=== PATIENT | male | born 1955 | race Caucasian/White ===

== ENCOUNTER → 2017-04-03 | Outpatient (CLI) | payer OTHER | LOC: FIMAGING 19:18 | PROVIDERS: ATTEND Orthopaedic Surgery Sports Medicine | DX: M75.121 Complete rotator cuff tear or rupture of right shoulder, not specified as traumatic (principal); M75.81 Other shoulder lesions, right shoulder; M19.011 Primary osteoarthritis, right shoulder ==

== ENCOUNTER → 2018-07-29 | Outpatient (CLI) | payer OTHER ==
[~2018-07-29] MED LIST: GADOBUTROL 10 ML VIAL IVP ONE
== END ==
LOC: FIMAGING 15:44
PROVIDERS: ATTEND Urology
DX: R39.89 Other symptoms and signs involving the genitourinary system (principal); N40.0 Benign prostatic hyperplasia without lower urinary tract symptoms; N40.2 Nodular prostate without lower urinary tract symptoms
CPT/HCPCS: A9585

== ENCOUNTER 2018-11-29 01:59 | Observation (INO) | payer OTHER ==
--- NOTE | 2018-11-29 02:08 | EDPHY ---
H & P Stated Complaint: bloody urine, self cath x 1 week post prostate suregery Time Seen by Provider: 11/29/18 02:08 HPI/ROS: HPI CHIEF COMPLAINT: Unable to urinate, hematuria HISTORY OF PRESENT ILLNESS: Patient is a 63-year-old male, history BPH, recently had a urological procedure for his prostate. He had a Javier catheter removed today. He had to urinate around 1:00 a.m.. He was unable to do so due to hematuria. Discomfort when he urinated. He has been self cathing. Presents emergency room with urinary urgency, suprapubic discomfort and fullness. Past Medical History: Denies significant medical history except for BPH Past Surgical History: Prostate surgery. Social History: Denies drugs alcohol tobacco. Family History: Noncontributory ROS REVIEW OF SYSTEMS: 10 Systems were reviewed and negative with the exception of the elements mentioned in the history of present illness. Exam Constitutional triage nursing summary reviewed, vital signs reviewed, awake/ alert. Eyes normal conjunctivae and sclera, EOMI, PERRLA. HENT normal inspection, atraumatic, moist mucus membranes, no epistaxis, neck supple/ no meningismus, no raccoon eyes. Respiratory clear to auscultation bilaterally, normal breath sounds, no respiratory distress, no wheezing. Cardiovascular rate normal, regular rhythm, no murmur, no edema, distal pulses normal. Gastrointestinal suprapubic fullness and tenderness on exam,no guarding, normal bowel sounds, no distension, no pulsatile mass. Genitourinary no CVA tenderness. Musculoskeletal no midline vertebral tenderness, full range of motion, no calf swelling, no tenderness of extremities, no meningismus, good pulses, neurovascularly intact. Skin pink, warm, & dry, no rash, skin atraumatic. Neurologic awake, alert and oriented x 3, AAOx3, moves all 4 extremities equally, motor intact, sensory intact, CN II-XII intact, normal cerebellar, normal vision, normal speech. Psychiatric normal mood/affect. Heme/Lymph/Immune no lymphadenopathy. Differential Diagnosis: Includes but is not limited to in a particular order urinary outflow obstruction, UTI, cystitis, BPH, blood clot causing obstructive Medical Decision Making: Plan for this patient bladder scan, urinalysis, Javier catheter. Re-evaluation: Bladder scan reported to me as a 1000 cc. 0257: Javier catheter was placed, large amount of bright red blood per Javier catheter removed. Will irrigate. Patient at 2:57 a.m. Very uncomfortable writhing in pain having bladder spasms and discomfort. IV will be established, IV Dilaudid 1 mg, IV fluids, IV Zofran. Basic labs. 0301: Bedside ultrasound performed, bladder scan shows a large hematoma in the bladder. Ultrasound bladder and kidneys shows large heterogeneous solid clot within a moderately distended bladder Javier catheter placed. No hydro. Dr. Lawler, at bedside evaluating patient. Source: Patient - Personal History Current Tetanus Diphtheria and Acellular Pertussis (TDAP): Yes - Medical/Surgical History Hx Asthma: No Hx Chronic Respiratory Disease: No Hx Diabetes: No Hx Cardiac Disease: No Hx Renal Disease: No Hx Cirrhosis: No Hx Alcoholism: No Hx HIV/AIDS: No Hx Splenectomy or Spleen Trauma: No Other PMH: 11/20/18 resum - Social History Smoking Status: Never smoked Constitutional: Initial Vital Signs Temperature (C) 36.6 C 11/29/18 02:02 Heart Rate 108 H 11/29/18 02:02 Blood Pressure 147/99 H 11/29/18 02:02 O2 Sat (%) 96 11/29/18 02:02 O2 Delivery Mode Room Air Allergies/Adverse Reactions: naproxen [From Naprosyn] Allergy (Verified 11/29/18 09:02) Hives Penicillins Allergy (Verified 11/29/18 09:02) Hives Home Medications: Medication Instructions Recorded NK [No Known Home Meds] 11/29/18 Medical Decision Making - Data Points Laboratory Results: Laboratory Results 11/29/18 03:00 11/29/18 03:00 Medications Given: Hydrocodone Bitart/Acetaminophen (Starke 5/325) 1 - 2 tab PO Q4HRS PRN PRN Reason: Pain, Moderate Able to Take PO Stop: 12/09/18 04:55 Last Admin: 11/29/18 22:42 Dose: 1 tab Senna/Docusate Sodium (Senokot-S) 1 tab PO BID TONNY Stop: 05/28/19 08:59 Last Admin: 11/29/18 21:21 Dose: 1 tab Discontinued Medications Belladonna Alkaloids/Opium (B & O) Confirm Administered Dose 1 each AR .STK-MED ONE Stop: 11/29/18 15:48 Last Admin: 11/29/18 16:19 Dose: 1 each Hydromorphone HCl (Dilaudid) 0.5 mg IVP EDNOW ONE Stop: 11/29/18 02:55 Last Admin: 11/29/18 03:59 Dose: Not Given Hydromorphone HCl (Dilaudid) 1 mg IVP EDNOW ONE Stop: 11/29/18 02:57 Last Admin: 11/29/18 03:00 Dose: 1 mg Hydromorphone HCl (Dilaudid) 1 mg IVP EDNOW ONE Stop: 11/29/18 03:15 Last Admin: 11/29/18 03:20 Dose: 1 mg Hydromorphone HCl (Dilaudid) 0.5 mg IVP EDNOW ONE Stop: 11/29/18 04:00 Last Admin: 11/29/18 03:00 Dose: 0.5 mg Sodium Chloride (Ns) 1,000 mls @ 0 mls/hr IV EDNOW ONE; Wide Open PRN Reason: Protocol Stop: 11/29/18 02:55 Last Admin: 11/29/18 04:01 Dose: Not Given Trimethoprim/Sulfamethoxazole (81 mg/ Dextrose) 255.0625 mls @ 250 mls/hr IV ONCALL ONE PRN Reason: Protocol Stop: 11/29/18 14:09 Last Admin: 11/29/18 14:03 Dose: Not Given Trimethoprim/Sulfamethoxazole (160 mg/ Dextrose) 260 mls @ 260 mls/hr IV ONCE ONE Stop: 11/29/18 14:59 Last Admin: 11/29/18 14:33 Dose: 260 mls Lactated Ringer's (Lr) 1,000 mls @ 0 mls/hr IV ONCE ONE PRN Reason: KVO Stop: 11/29/18 14:13 Last Admin: 11/29/18 17:33 Dose: Not Given Levofloxacin (Levaquin) 500 mg PO EDNOW ONE PRN Reason: Protocol Stop: 11/29/18 04:57 Last Admin: 11/29/18 05:53 Dose: Not Given Lidocaine (Uroject Lidocaine 2% Jelly) 20 ml UR EDNOW ONE Stop: 11/29/18 02:27 Last Admin: 11/29/18 03:19 Dose: 20 ml Lidocaine (Uroject Lidocaine 2% Jelly) Confirm Administered Dose 20 ml .ROUTE .STK-MED ONE Stop: 11/29/18 14:44 Last Admin: 11/29/18 16:18 Dose: 20 ml Ondansetron HCl (Zofran) 4 mg IVP EDNOW ONE Stop: 11/29/18 02:55 Last Admin: 11/29/18 03:19 Dose: 4 mg Trimethoprim/Sulfamethoxazole (Bactrim Ds) 1 ea PO BID TONNY PRN Reason: Protocol Stop: 12/29/18 12:44 Last Admin: 11/29/18 14:03 Dose: Not Given Departure - Departure Disposition: Home, Routine, Self-Care Clinical Impression: Urinary (tract) obstruction Hematuria Qualifiers: Hematuria type: unspecified type Qualified Code(s): R31.9 - Hematuria, unspecified Hematoma of bladder wall Qualifiers: Encounter type: initial encounter Qualified Code(s): S37.22XA - Contusion of bladder, initial encounter Condition: Good
[2018-11-29] MEDS ORDERED: LIDOCAINE 2% JELLY 20 ML (UROJECT) UR ONE (02:26)
[2018-11-29] MEDS ORDERED: ONDANSETRON 4 MG/2 ML VIAL IVP ONE (02:54)
[2018-11-29] MEDS ORDERED: NS 1,000 ML IV ONE (02:54)
[2018-11-29] MEDS: HYDROmorphONE/DILAUDID 2 MG/ML INJ IVP ONE ×6 (03:00→03:59)
[2018-11-29 03:21] LABS: INR 1.01 (0.83-1.16); PROTIME(PATIENT) 12.9 SEC (12.0-15.0)
[2018-11-29] MEDS ORDERED: HYDROmorphONE/DILAUDID 2 MG/ML INJ IVP ONE (03:59)
[2018-11-29 04:02] LABS: PLATELET COUNT 244 10^3/uL (150-400)
[2018-11-29] MEDS ORDERED: OPIUM/BELLADONNA ALKALO SUPP PR PRN (04:56)
[2018-11-29] MEDS ORDERED: ONDANSETRON 4 MG/2 ML VIAL IVP PRN (04:56)
[2018-11-29] MEDS ORDERED: D5W LR 1,000 ML IV SCH (05:00)
--- NOTE | 2018-11-29 05:15 | PDCONSULT ---
Chenille Machine Operator Note: Requested by Dr. Georges [facility] hematuria, clot HPI 63M s/p Rezum procedure 2 weeks ago. Unable to void a few days after procedure and repeat voiding trial yesterday again pt unable to void. Taught CIC in my office and this went well. However, tonight he was passing zazueta and met resistance and got return of rafy blood at 9pm and 1am. Then significant abdominal discomfort and came to ER for eval. ER placed 18F [address] way, unable to irrigate and rafy blood return. Renal bladder us performed, SHARITA personally reviewed, 11cm clot seen in bladder, zazueta balloon in bladder. Urologist consulted. Pt in much discomfort suprapubically and in the urethra. NO blood thinners, but Ibuprofen yesterday. Otherwise healthy gentleman. ROS 10pt ROS performed, as stated in HPI, otherwise neg. PMH/PSH/FH/SH reviewed. PE Gen NAD A&O CV regular Lungs Normal effort Abd Suprapubic area distended, firm, tender 18F [address], rafy blood in catheter tubing. 18F removed. Using sterile technique, 24F 3w placed without difficulty or resistance. Return of bloody urine. Then manual irrigation of zazueta with 3L NS with removal of significant amount of clot. Irrigated until no more clot extracted and urine was clear/red. CBI initiated. Patient felt much better after manual irrigation and SP region no longer distended. A/P Hematuria/clot retention after cath this evening Urinary retention after prostate vaporization procedure 2 weeks ago Suspect a false passage leading to significant prostatic bleeding and this clot tonight. Plan: CBI, manual irrigation PRN clots/obstruction of zazueta Repeat SHARITA this morning to assess clot burden. NPO for now until repeat SHARITA can be performed to assess clot burden Pain control, IVF. Levaquin 1 dose given recent manipulation.
--- NOTE | 2018-11-29 08:59 | ASMTCMCOM ---
CM Note CM Note Notes: Pt is a 63 yo M who underwent prostate surgery two weeks ago presents with abdominal pain and blood in urine. Chart reviewed for discharge planning. Pt lives with . No therapies ordered at this time. Discharge needs TBD at this point. CM to follow. Plan: TBD Date Signed: 11/29/2018 08:59 AM Electronically Signed By:CHRISS Simpson
[2018-11-29] MEDS: SENNOSIDES/DOCUSATE SODIUM TAB PO SCH ×2 (09:00→21:21)
[2018-11-29] MEDS ORDERED: SULFAMETHOX/TMP 800/160 MG 1 TAB PO SCH (12:45)
--- NOTE | 2018-11-29 13:06 | SOAPPROG ---
SOAP Progress Note Assessment/Plan: Assessment: hematuria after traumatic zazueta Recent SHARITA shows small reduction in bladder clot. Recent manual irrigation didn't produce significant extraction of clot. Suspect well organized clot. Plan: Recommend repeat SHARITA to eval clot size and if not significantly reduced, then recommend OR for clot evac, possible fulguration of bleeding vessel. Bactrim preop abx. 11/29/18 13:04 11/29/18 13:11 Subjective: CBI running, urine still red. SHARITA this Am personally reviewed - clot smaller but still significant. Pain much reduced since zazueta and irrigation last night. Objective: Vital Signs Temp Pulse Resp BP Pulse Ox 36.6 C 71 18 118/64 94 11/29/18 11:16 11/29/18 11:16 11/29/18 11:16 11/29/18 11:16 11/29/18 11:16 11/28/18 11/29/18 11/30/18 05:59 05:59 05:59 Intake Total 0 Output Total 1800 150 Balance -1800 -150 PT 12.9 SEC (12.0-15.0) 11/29/18 03:00 INR 1.01 (0.83-1.16) 11/29/18 03:00 Gen NAED A*O CV regular Lungs Normal effort Abd soft Ext warm SP region soft. Zazueta in place, urine light pink. I manually irrigated again and very little clot could be extracted. Suspect well organized clot. ICD10 Worksheet Patient Problems: Problems Problem Status Onset Hematoma of bladder wall Acute Hematuria Acute Urinary (tract) obstruction Acute
[2018-11-29] MEDS ORDERED: SULFAMETHOX IV ONE ×2 (13:08→14:00)
[2018-11-29] MEDS ORDERED: D5W IV ONE ×2 (13:08→14:00)
[2018-11-29] MEDS ORDERED: TMP IV ONE ×2 (13:08→14:00)
[2018-11-29] MEDS ORDERED: LR 1,000 ML IV ONE (14:12)
[2018-11-29] MEDS ORDERED: LIDOCAINE 2% JELLY 20 ML (UROJECT) ONE (14:43)
--- NOTE | 2018-11-29 14:47 | PDANEPAE ---
ANE History of Present Illness here for cysto ANE Past Medical History - Cardiovascular History Hx Hypertension: No Hx Arrhythmias: No Hx Chest Pain: No Hx Coronary Artery / Peripheral Vascular Disease: No Hx CHF / Valvular Disease: No Hx Palpitations: No - Pulmonary History Hx COPD: No Hx Asthma/Reactive Airway Disease: No Hx Recent Upper Respiratory Infection: No Hx Oxygen in Use at Home: No Hx Sleep Apnea: No Sleep Apnea Screening Result - Last Documented: Positive - Endocrine History Hx Diabetes: No Hypothyroid: No Hyperthyroid: No Obesity: no - Renal History Hx Renal Disorders: Yes - Liver History Hx Hepatic Disorders: No - Neurological & Psychiatric Hx Hx Neurological and Psychiatric Disorders: No - Chronic Pain History Chronic Pain: No ANE Review of Systems Review of systems is: negative Review of Systems: - Exercise capacity Exercise capacity: >=4 METS ANE Patient History - Allergies Allergies/Adverse Reactions: naproxen [From Naprosyn] Allergy (Verified 11/29/18 09:02) Hives Penicillins Allergy (Verified 11/29/18 09:02) Hives - Home Medications Home medications: home medication list seen and reviewed Home Medications: NK [No Known Home Meds] 11/29/18 [Last Taken Unknown] - NPO status NPO Status: no food or drink >8 hours NPO Since - Liquids (Date): 11/29/18 NPO Since - Liquids (Time): 01:00 NPO Since - Solids (Date): 11/28/18 NPO Since - Solids (Time): 19:00 - Anes Hx Anes Hx: no prior problems - Smoking Hx Smoking Status: Never smoked ANE Labs/Vital Signs - Labs Result Diagrams: 11/29/18 03:00 11/29/18 03:00 - Vital Signs Vital Signs: reviewed preoperatively; see RN documention for details Blood Pressure: 118/64 Heart Rate: 69 Respiratory Rate: 18 O2 Sat (%): 94 Height: 177.8 cm Weight: 72.3 kg ANE Physical Exam - Airway Neck exam: FROM Mallampati Score: Class 1 - Pulmonary Pulmonary: no respiratory distress - Cardiovascular Cardiovascular: regular rate and rhythym - ASA Status ASA Status: I ANE Anesthesia Plan Anesthesia Plan: GA w LMA
[2018-11-29] MEDS ORDERED: PROPOFOL/EMULSION 500 MG/50 ML BOTTLE IV ONE (14:59)
[2018-11-29] MEDS ORDERED: fentaNYL 100 MCG/2 ML INJ ONE (15:00)
[2018-11-29] MEDS ORDERED: DEXAMETHASONE 4 MG/ML VIAL ONE (15:12)
[2018-11-29] MEDS ORDERED: ONDANSETRON 4 MG/2 ML VIAL ONE (15:13)
[2018-11-29] MEDS ORDERED: OPIUM/BELLADONNA ALKALO SUPP PR ONE (15:47)
--- NOTE | 2018-11-29 16:53 | POSTOPPROG ---
Post Op Note Date of Operation: 11/29/18 Surgeon: Tiffany Johnson Anesthesiologist: Miguel Anesthesia: GET(General Endotracheal) Pre-op Diagnosis: gross hematuria, clot retention, recent zazueta trauma Post-op Diagnosis: same Indication: gross hematuria, clot retention, recent zazueta trauma Procedure: cysto, clot evacuation, TURP, fulguration of traumatized prostate tissue Findings: clot, posterior prostate w false passage, active bleeding prostate tissue Inf/Abcess present in the surg proc area at time of surgery?: No EBL: Minimal Complications: None, pt tolerated procedure well Drains: Other (zazueta) Specimen(s): prostate chips
--- NOTE | 2018-11-29 17:40 | GOP ---
[f rep st] OPERATIVE REPORT DATE OF OPERATION: 11/29/2018 SURGEON: Tiffany Johnson MD ANESTHESIA: General. ANESTHESIOLOGIST: Dr. Rivera. PREOPERATIVE DIAGNOSIS: Gross hematuria, clot retention, and recent Javier trauma. POSTOPERATIVE DIAGNOSIS: Gross hematuria, clot retention, and recent Javier trauma. PROCEDURE PERFORMED: Cystoscopy, clot evacuation, transurethral resection of prostate, and fulgurati on of traumatized prostate tissue. FINDINGS: A very large clot in the bladder that was removed with the [employer] evacuator. Active bleedi ng was seen at the posterior prostate, but also this area coincided with what appeared to have some t earing of the posterior adenoma down to the capsule, and it was the capsule that was bleeding. At the end of the procedure, he was completely hemostatic. No infection. SPECIMENS: Prostate chips. ESTIMATED BLOOD LOSS: Minimal, although about 200 cc of clot was removed. INDICATIONS: The patient underwent a Rezum prostate vaporization procedure in my office 2 weeks ago and he had persistent urinary retention after the Javier had been removed. He was taught clean interm ittent catheterization on at my office and did well with this. However, passing the cathete r after the teaching at 9 p.m. and 1 a.m. yesterday resulted in significant return of blood, inabilit y to void, and gross blood per urethra. He came to the ER, where ultrasound demonstrated an 11 cm cl ot in the bladder. I was consulted, placed a 24 three-way catheter, and irrigated a significant amou nt of clot out. Reimaging demonstrated persistent clot, although it was smaller. I attempted to con tinue to do manual irrigation throughout the day today and did not get a lot of clot out with the man ual irrigation, but his urine still remained red and I was concerned there was some active bleeding g oing on. Thus, I recommended cystoscopy, clot evacuation, and evaluation for any bleeding tissue. Leslye lópez understood this and agreed to proceed. I did discuss the risks completely, include bleeding, infec tion, pain, injury to the urethra, the bladder, the ureteral orifices, need for subsequent procedures , need for some resection of the prostate, need for Javier catheter afterwards, and he understood this and agreed to proceed. DESCRIPTION OF PROCEDURE: He was taken back to the cystoscopy suite and placed on the cystoscopy tab le in the supine position. General anesthesia induced without complication. Time-out performed. Co re measures satisfied, including placement of a Estefani Hugger, SCDs, and administration of Bactrim IV a ntibiotics. He was brought to the end of the table, placed in the dorsal lithotomy position. All pr essure points padded. Genitalia draped and prepped in the standard surgical fashion with Betadine. A rigid cystoscope easily cannulated the urethral meatus and was advanced atraumatically into the ken dder. I examined the prostatic urethra as the cystoscope was advanced in and I did not see any activ e bleeding there. At this point, I did see a very large clot in the bladder and then used the Edai evacuator to get the clot out in its entirety. The bladder otherwise had no active bleeding. There were some mucosal changes from the catheter in the posterior bladder, but nothing that was actively b leeding. I pulled my scope back into the prostatic urethra and there was a small tissue that was at the posterior bladder neck. I thought at this point, this may be the source, but I was uncertain and it was certainly not actively bleeding, so I removed the cystoscope and then assembled the TURis res ectoscope. I used the visual obturator to advance the resectoscope sheath into the bladder and then assembled the loop and did resect this area of tissue that was right at the bladder neck. However, I then started seeing some bleeding in the posterior prostate area, where I further evaluated and ther e was a false passage, but also an area that looked like the posterior prostate tissue had lifted off the capsule, and it was actually the capsule that was bleeding. I used the resectoscope to remove t his tissue that appeared to be lifted off the posterior capsule, resected that carefully, and then re sected down to the capsule and cauterized this area. It was actively bleeding in 2 areas posteriorly . I did put a second glove on my left hand and do a manual digital rectal exam to make sure there wa s no rectal involvement, and there was not. The rectum was completely intact, and not even at this a domenic, where this capsular bleeding was. I then continued to watch for bleeding. It did take quite a bit of fulguration to stop the bleeding in this area, but once I had thoroughly cauterized this, it w as completely hemostatic. I did resect some of the tissue to get to this area of the posterior prost ate from the bladder neck backwards. I made sure I did not violate the veru. I did not resect all t he way back to the veru and I did not injure the ureteral orifices. I checked their location through out and they were untouched. At this point, he was completely hemostatic. I did not resect any ante rior tissue and did very minimal lateral tissue. At this point then, I removed all the prostate chip s and sent those to Pathology. I removed the resectoscope and then replaced the cystoscope back into the bladder and placed a wire through the cystoscope sheath, as I felt that now we had an anatomy th at may make passage of a catheter more difficult with the newly resected posterior tissue. I placed the catheter over a wire. It went in easily, with return of crystal clear urine. The balloon was in flated with 35 mL of sterile water. Belladonna and opium placed per rectum. At this point, I consid ered the procedure complete. He was awoken from anesthesia and transferred to PACU in good condition . DRAINS: Javier catheter. /[id number]/MODL
[2018-11-29] MEDS: HYDROCODONE/APAP 5/325 TAB PO PRN ×2 (17:45→22:42)
--- NOTE | 2018-11-29 19:14 | POSTANESTH ---
Post Anesthetic Evaluation Cardiovascular Status: Normal, Stable Respiratory Status: Normal, Stable Level of Consciousness/Mental Status: Can Participate in Eval Pain Control: Adequate, Prn Tx Ordered Nausea/Vomiting Control: Adequate, Prn Tx Ordered Complications Possibly Related to Anesthesia: None Noted
[2018-11-30] MEDS: HYDROCODONE/APAP 5/325 TAB PO PRN (07:35)
[2018-11-30] MEDS: SENNOSIDES/DOCUSATE SODIUM TAB PO SCH (07:53)
[2018-11-30] MEDS ORDERED: SULFAMETHOX/TMP 800/160 MG 1 TAB PO SCH (09:00)
[2018-11-30] MEDS ORDERED: LIDOCAINE 2% JELLY 20 ML (UROJECT) UR ONE (09:15)
--- NOTE | 2018-11-30 09:56 | SOAPPROG ---
SOAP Progress Note Assessment/Plan: Assessment: hematuria after traumatic zazueta s/p prostate vaporization procedure 2 wks ago POD 1 fulguration of bleeding prostate tissue and resection of posterior prostate tissue at the site of injury Plan: Voiding trial. If fails, will place 18F coude and dc w zazueta. Will check PVR x 3 and MD to be notified of results. Bactrim x 3 days for post procedure UTI prevention. 11/30/18 09:58 Subjective: Urine clear. CBI off. No pain. Taco diet Objective: Vital Signs Temp Pulse Resp BP Pulse Ox 36.6 C 79 16 103/58 L 92 11/30/18 03:56 11/30/18 03:56 11/30/18 03:56 11/30/18 03:56 11/30/18 03:56 11/29/18 11/30/18 12/01/18 05:59 05:59 05:59 Intake Total 0 1750 Output Total 1800 5050 Balance -1800 -3300 PT 12.9 SEC (12.0-15.0) 11/29/18 03:00 INR 1.01 (0.83-1.16) 11/29/18 03:00 Gen NAD A&O CV regular Lungs Normal effort Abd soft Ext warm zazueta in place, urine crystal clear. Bladder filled w 280ml, zazueta removed, pt voided 220ml. - Pending Discharge Pending Discharge Within 24 Hours: Yes Pending Discharge Date: 12/01/18 Pending Discharge Time: 11:00 ICD10 Worksheet Patient Problems: Problems Problem Status Onset Hematoma of bladder wall Acute Hematuria Acute Urinary (tract) obstruction Acute
--- NOTE | 2018-11-30 10:34 | ASDISCHSUM ---
Discharge Information Plan Status:Home with No Needs Medically Cleared to Leave: Discharge Date: CM D/C Disposition:Home, Routine, Self-Care ADT D/C Disposition:Home, Routine, Self-Care Projected Discharge Date: Transportation at D/C:Family Discharge Delay Reason: Follow-Up Date: Discharge Slot: Final Diagnosis: Placement Information Patient Contact Information Contact Name:SHIRA Relationship: Address:[address] Work Phone: City:[facility] [facility] Phone: State/Zip Code:[place] [address] Email: Financial Information Financial Class:HMO and PPO Plans Primary Plan Desc:[employer] Primary Plan Number:[id number] Secondary Plan Desc: Secondary Plan Number: Assessment Information LACE LACE Acuity / Level of Answers: No Care: Did the patient have an inpatient admission? # of Emergency department Answers: 1-2 visits in the last 6 months Score: 1 Date Signed: 11/30/2018 10:34 AM Electronically Signed By:Suze Wang [facility] CM Progress Note CM Note CM Note Notes: Pt is a 63 yo M who underwent prostate surgery two weeks ago presents with abdominal pain and blood in urine. Chart reviewed for discharge planning. Pt lives with . No therapies ordered at this time. Discharge needs TBD at this point. CM to follow. Plan: TBD Date Signed: 11/29/2018 08:59 AM Electronically Signed By:CHRISS Simpson Intervention Information
[2018-11-30 13:44] VITALS: BP 114/60
== END 2018-11-30 13:36 | disposition home or self-care (01) ==
LOC: F1N 05:25
PROVIDERS: ADMIT Urology; ATTEND Urology
PROC: 0T9870Z Drainage of Bilateral Ureters with Drainage Device, Via Natural or Artificial Opening (ICD-10-PCS; 2018-11-29)
PROC: 4A0D7LZ Measurement of Urinary Volume, Via Natural or Artificial Opening (ICD-10-PCS; 2018-11-29)
PROC: 0T9B8ZZ Drainage of Bladder, Via Natural or Artificial Opening Endoscopic (ICD-10-PCS; principal; 2018-11-29 15:00)
PROC: 0VB08ZZ Excision of Prostate, Via Natural or Artificial Opening Endoscopic (ICD-10-PCS; principal; 2018-11-29 15:00)
DX: N99.840 Postprocedural hematoma of a genitourinary system organ or structure following a genitourinary system procedure (principal); S37.22XA Contusion of bladder, initial encounter; X58.XXXA Exposure to other specified factors, initial encounter; R31.9 Hematuria, unspecified; E86.0 Dehydration; Y93.89 Activity, other specified; Y92.9 Unspecified place or not applicable; Y99.9 Unspecified external cause status
CPT/HCPCS: 51798; 52001; 52630; 76770; 76775; 96374; 99285; C1769; G0378; J1100; J1170; J2405; J2704; J3010